=== PATIENT | female | born 1975 | race Caucasian/White ===

== ENCOUNTER 2022-02-04 13:42 | Emergency (ER) | payer BC, SELFPAY ==
[2022-02-04 13:46] VITALS: BP 161/100; PULSE 73; RESP 19; TEMP 36.7; O2SAT 98
--- NOTE | 2022-02-04 14:00 | RT.EKG_ITS ---
APPROVED REPORT Exam: Resting ECG Reason for Exam: fatigue Patient Location: E HR:67 bpm ECG Measurements Heart Rate 67 AXIS NE 171 P 47 QRSd 95 QRS 44 QT 398 T 27 QTc 420 Conclusion Sinus rhythm...normal P axis, V-rate 60- 99 Physician: sinus, no stemi, no st elevation or depression. inverted t wave in V1. no prior for compar jeffery
--- NOTE | 2022-02-04 14:08 | ED.GENADUL_ITS ---
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 Past medical history also includes a partial hysterectomy. She presents today for evaluation of fatigue. Patient states that for the last 4 days she has felt notably fatigued, sleeping 16+ hours every day. She has noticed some mild hair loss that has been occurring as well. She is uncertain if she has had any significant weight gain or weight loss. Over the last few weeks she has noticed some mild fatigue, but not as severe as over the last 4 days. She denies fever, chills, chest pain or shortness of breath. She denies any new numbness, tingling, or weakness. She does take her medication as directed, but occasionally secondary to pharmacy issues there will be periods where she is not able to receive her thyroid medications for a few days. The last occurrence of this was about 3 to 4 weeks ago. Patient has recently moved here from [place]. She has no other complaints at this time. No other modifying Physical exam is unremarkable, vital signs are stable. Patient shows no evidence of goiter, significant mass on her neck. Some chronic fibrotic nature on palpation of the neck, but no significant mass or other abnormality. Differential includes electrolyte abnormality, diminished thyroid effectiveness as that she potential causes. We will evaluate for these. Additionally ACS appears notably less likely but is of concern. Screening EKG shows no significant abnormalities aside for an inverted T waves in V1. No evidence of STEMI. We will also get lead and B vitamin assessment as well as the patient is now living at a new house here in [place]. Patient will be signed out to my colleague Dr. Jerrell Mccurdy. HPI General Date/Time Provider Initiated Documentation: 02/04/22 13:44 . 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 Past medical history also includes a partial hysterectomy. She presents today for evaluation of fatigue. Patient states that for the last 4 days she has felt notably fatigued, sleeping 16+ hours every day. She has noticed some mild hair loss that has been occurring as well. She is uncertain if she has had any significant weight gain or weight loss. Over the last few weeks she has noticed some mild fatigue, but not as severe as over the last 4 days. She denies fever, chills, chest pain or shortness of breath. She denies any new numbness, tingling, or weakness. She does take her medication as directed, but occasionally secondary to pharmacy issues there will be periods where she is not able to receive her thyroid medications for a few days. The last occurrence of this was about 3 to 4 weeks ago. Patient has recently moved here from [place]. She has no other complaints at this time. No other modifying Related Data Home Medications Medication Instructions Recorded Confirmed clonazepam 0.25 mg disintegrating 0.25 mg PO DAILY PRN 02/04/22 02/04/22 tablet fluoxetine 40 mg capsule 40 mg PO DAILY 02/04/22 02/04/22 multivitamin 1 cap PO DAILY 02/04/22 02/04/22 thyroid (pork) 90 mg tablet 90 mg PO DAILY 02/04/22 02/04/22 ([place] Thyroid) Allergies Allergy/AdvReac Type Severity Reaction Status Date / Time No Known Allergies Allergy Unverified 02/04/22 13:58 General Stated Complaint: GenMedical AUNG: 3 Review of Systems All systems reviewed & are unremarkable except as noted in HPI and below PFSH All Active Problems (Updated 02/04/22 @ 14:59 by Leandro Guidry DO) Fatigue (Acute) Social History Smoking/Tobacco Use Status: Never Smoking risk assessment performed?: Yes Alcohol Intake: current Alcohol Intake frequency: 0-2 drinks per day Drug use: Rarely Substance use type: marijuana Do you feel safe at home: Yes Do you feel safe in your relationship?: Yes Exam Narrative Exam Narrative: 1.Const: Well-nourished, Well-developed, appearing stated age 2.Eyes: PERRL, no conjunctival injection, and symmetrical lids. 3.ENT: Atraumatic external nose and ears. Moist MM. Neck: Symmetric, trachea midline, No thyromegaly. No palpable tenderness nodules or nodes on palpation of the patient's anterior neck 4.CVS: +S1/S2, No murmurs or gallops. Peripheral pulses 2+ and equal in all extremities. Brisk capillary refill in all extremities. 5.RESP: Unlabored respiratory effort. Clear to auscultation bilaterally. No wheezes rales or rhonchi 6.GI: Soft, Nontender/Nondistended, No hepatosplenomegaly. No guarding or rebound. 7.MSK: Normocephalic/Atraumatic, Extremities w/o deformity or ttp No cyanosis or clubbing, Normal movement of all extremities 8.Skin: Warm, Dry. No rashes or lesions. 9.Neuro: college admissions counselor II-XII grossly intact. Sensation grossly intact, no focal neurologic deficits. 10.Psych: (AAO) x3. Appropriate mood and affect Course Vital Signs Vital signs: Vital Signs Temperature 36.7 C 02/04/22 13:46 Pulse 73 02/04/22 13:46 Respiratory Rate 19 02/04/22 13:46 Blood Pressure 161/100 H 02/04/22 13:46 Pulse Oximetry 98 02/04/22 13:46 Temperature 36.7 C 02/04/22 13:46 Temperature Source Tympanic 02/04/22 13:46 Pulse 73 02/04/22 13:46 Respiratory Rate 19 02/04/22 13:46 Respiratory Effort 02/04/22 13:55 Blood Pressure 161/100 H 02/04/22 13:46 Blood Pressure Position Sitting 02/04/22 13:46 Pulse Oximetry 98 02/04/22 13:46 Oxygen Delivery Method Room Air 02/04/22 13:46 Oxygen Flow Rate 0 02/04/22 13:46 PAWSS Have you Been Recently Intoxicated or Drunk Within the Last 30 days?: No Have you Ever Experienced Previous Episodes of Alcohol Withdrawal?: No Have you ever Experienced Withdrawal Seizures?: No Have you ever Experienced Delirium Tremens(DT)s?: No Have you ever undergone Alcohol Rehabilitation Treatment (i.e, inpt ot outpatient treatment programs)?: No Have you ever Experienced Blackouts?: No Have you ever Combined Alcohol with other Downers within the last 90 days?: No Have you ever Combined Alcohol with any other Substance of Abuse during the last 90 days?: Yes Positive Blood Alcohol level on Presentation? [PCS.BAL]: No Evidence of Increased Autonomic Activity (i.e. HR>120, tremor, sweating, agitation, nausea)?: No Result: 2
[2022-02-04 14:36] VITALS: RESP 16
[2022-02-04 14:38] LABS: Abs Immature Grans 0.01 10^3/uL (0.0-0.06); Absolute Basophil Count 0.03 10^3/uL (0.0-0.2); Absolute Eosinophil Count 0.06 10^3/uL (0.0-0.7); Absolute Lymphocyte Count 1.21 10^3/uL (1.2-3.4); Absolute Monocyte Count 0.48 10^3/uL (0.1-0.8); Absolute Neutrophil Count 4.53 10^3/uL (1.2-6.7); Basophils % 0.5; Eosinophils % 0.9; HCT 38.7 % (36.0-46.0); HGB 12.7 g/dL (11.2-15.7); Immature Grans % 0.2; Lymphocytes % 19.1; MCH 32.1 pg (27.0-33.0); MCHC 32.8 % (32.0-36.0); MCV 97.7 fL (80-95); MPV 9.8 fL (8.0-11.0); Monocytes % 7.6; Neutrophils % 71.7; Platelet Count 209 10^3/uL (130-400); RBC 3.96 10^6/uL (3.93-5.22); RDW 12.2 % (11.7-14.6); RDW-SD 44.3 fL; WBC 6.32 10^3/uL (4.4-10.8)
[2022-02-04 14:50] LABS: Ammonia < 10 umol/L (11-32)
[2022-02-04 14:51] LABS: Bilirubin Negative (Negative); Blood Negative (Negative); Clarity Clear (Clear); Glucose Negative (Negative); Ketones Negative (Negative); Leukocyte Esterase Negative (Negative); Nitrite Negative (Negative); Urobilinogen 0.2 EU/dL (Up TO 0.2); pH 5.5 (5-8)
[2022-02-04 15:03] LABS: TSH (W/Ref FT4) 0.52 uIU/mL (0.36-3.74); Troponin I < 50 ng/L (<or=60)
[2022-02-04 15:07] LABS: ALT 42 U/L (14-59); AST 16 U/L (15-37); Alkaline Phosphatase 69 U/L (46-116); Anion Gap 6.4 mmol/L (3-11); BUN 11 mg/dL (7-18); Bilirubin, Total 0.5 mg/dL (0.2-1.0); CO2 25.6 mmol/L (21.0-32.0); CREATININE 0.6 mg/dL (0.55-1.02); Calcium 8.8 mg/dL (8.5-10.1); Chloride 105 mmol/L (98-107); Glucose 106 mg/dL (74-106); Potassium 3.7 mmol/L (3.5-5.1); Sodium 137 mmol/L (136-145); Total Protein 6.9 g/dL (6.4-8.2)
--- NOTE | 2022-02-04 15:15 | DI.CT_ITS ---
Exam(s) CT HEAD WO/W EXAM: CT HEAD WO/W CLINICAL HISTORY: confusion, fatigue, hx of cancer, r/o mass. TECHNIQUE: Imaging Protocol: Axial computed tomography images with coronal and sagittal reformatted images were created and reviewed Post contrast imaging was also obtained following intravenous infusion of 100 cc of Omnipaque 350. COMPARISON: No exams were available for comparison FINDINGS: The ventricular system is normal in appearance. No evidence of acute intracranial hemorrhage, mass effect, or midline shift. There is no evidence of an intracranial mass lesion or enhancing lesion. The orbital structures are unremarkable. The temporal bone structures appear intact. Calvarium: Normal. Visualized Paranasal sinuses/Mastoids: Clear. IMPRESSION: Normal cranial CT. No enhancing lesion seen. If there is a high clinical suspicion of intracranial metastatic disease, additional evaluation with MRI of the brain may be obtained due to its increased sensitivity in comparison to CT. RADIATION DOSE DELIVERED: 1,403.47mGy.cm Total DLP 1,403.47mGy.cm Total DLP !Error CTDIvol DATA REPOSITORY: All CT scans at this facility are submitted to the National Radiology Data Registry (NRDR) Dose Index Registry (DIR) with the [employer] (ACR). RADIATION OPTIMIZATION: All CT scans at this facility use at least one of these dose optimization te chniques: automated exposure control; mA and/or kV adjustment per patient size (includes targeted exa ms where dose is matched to clinical indication); or iterative reconstruction.
[2022-02-04 15:28] LABS: COVID-19 PCR Negative (Negative); Influenza A PCR Negative (Negative); Influenza B PCR Negative (Negative); RSV PCR Negative (Negative)
[2022-02-04 15:39] LABS: Source Nasopharynx
--- NOTE | 2022-02-04 15:54 | CMACTNOTE_ITS ---
- If Service Date Differs Date of service: 02/04/22 Time of Service: 15:54 Care Management Activity Note Akosua is seen in the ED for fatigue. At the request of ED provider, CM contacts [facility] to obtain a follow up appointment for Akosua. An urgent ED follow-up appointment is scheduled with Dr. Vee for Thursday, February 10, 2022, at 10:00 am.
[2022-02-04 16:04] LABS: Salicylate < 2.8 mg/dL (<2.8)
[2022-02-04 16:14] LABS: Acetaminophen < 2 ug/mL (10-30)
[2022-02-04] MEDS: Omnipaque 350 MG/ML 100 ML BTL IJ (16:59)
[2022-02-04] MEDS: Normal Saline Flush 10 ML SYR IVP (17:00)
--- NOTE | 2022-02-04 17:14 | DI.VRAD_ITS ---
PROCEDURE INFORMATION: Exam: CT Head With Contrast Exam date and time: 02/04/2022 4:49 PM Age: 47 years old Clinical indication: Confusion, fatigue, HX of cancer TECHNIQUE: Imaging protocol: Computed tomography of the head with intravenous contrast. COMPARISON: No relevant prior studies available. FINDINGS: Brain: No intracranial hemorrhage or extra-axial fluid collection. No evidence of mass effect or midline shift. Sandoval-white matter differentiation is intact. No abnormal intracranial enhancement. Cerebral ventricles: Unremarkable. No ventriculomegaly. Bones/joints: No acute osseus lesion or fracture. Paranasal sinuses: Visualized sinuses are unremarkable. No fluid levels. Mastoid air cells: Unremarkable. Soft tissues: Unremarkable. IMPRESSION: No acute intracranial pathology. If continued clinical suspicion for possible intracranial metastatic disease given provided history of cancer, recommend further evaluation with MRI brain with and without contrast. Dictated and Authenticated by: Yaya Shen MD. Ordering:SAFIA Reeves MD
--- NOTE | 2022-02-04 17:15 | NUR.NOTE ---
pts resting comfortably in room, no complaints at this time. JM
--- NOTE | 2022-02-04 17:31 | W.EDPROG ---
Date of service: 02/04/22 Time of Service: 17:31 Medical Decision Making Resting comfortably no acute distress, alert oriented, she does have some increased energy since arrival, nonmeningeal, afebrile nontoxic, however does appear fatigued, moving all extremities without focal deficits, full range of motion of neck, denies headache. Consider viral syndrome such as Sharan-Ocasio/mono versus tickborne illness, no evidence of electrolyte abnormality or dysfunction TSH, CT head unremarkable. Patient has urgent follow-up with next week with primary care given home care instructions and strict return precautions Discharge Plan Disposition Patient Disposition: HOME Condition: Stable Discharge Details Clinical Impression: Fatigue Primary Care Provider: Nel,Local ED Provider: Luis Georges Home Meds and New Rx's Prescriptions: Continued fluoxetine 40 mg Capsule 40 mg PO DAILY 0RF multivitamin Capsule 1 cap PO DAILY 0RF clonazepam 0.25 mg Tablet,Disintegrating 0.25 mg PO DAILY PRN0RF thyroid (pork) [[place] Thyroid] 90 mg Tablet 90 mg PO DAILY 0RF Discharge Instructions Instructions: Fatigue (ED) Additional Instructions: At this time your thyroid function is within normal limits, your hemoglobin levels are normal. Your electrolytes are normal. We will help to establish a new primary care provider for you. You will be contacted when one has been set up. If you notice any worsening of your symptoms, or any new symptoms such as vomiting, diarrhea, fever, chills, shortness of breath, chest pain, numbness, weakness, headache, or fainting , please return immediately to the emergency department for reevaluation. Please follow up with your primary care provider as soon as possible for reassessment and reevaluation. As always, it was a pleasure participating in your medical care today.
[2022-02-04 17:50] VITALS: BP 138/72; PULSE 82; RESP 16; O2SAT 98
[2022-02-04 22:59] LABS: Vitamin B12 367 pg/mL (211-911)
[2022-02-06 11:30] LABS: Lyme Ab w Rflx to Lyme Confirm Negative (Negative)
[2022-02-06 22:21] LABS: Anaplasma phagocytophilum Negative (Negative); B. miyamotoi PCR Negative (Negative); Babesia divergens/MO-1 Negative (Negative); Babesia duncani Negative (Negative); Babesia microti Negative (Negative); Ehrlichia chaffeensis Negative (Negative); Ehrlichia ewingii/canis Negative (Negative); Ehrlichia muris eauclairensis Negative (Negative)
[2022-02-07 15:01] LABS: Riboflavin (Vitamin B2), P 5 mcg/L (1-19)
[2022-02-07 17:36] LABS: Thiamine (Vitamin B1), WB 137 nmol/L (70-180)
[2022-02-10 16:07] LABS: Biotin (Vitamin B7), Serum >3600.0 pg/mL
[2022-02-16 09:31] LABS: Niacin (Vitamin B3), Plasma See Comments ug/mL
== END 2022-02-04 17:55 | disposition home or self-care (01) ==
PROVIDERS: Student in an Organized Health Care Education/Training Program; Emergency Provider Emergency Medicine
DX: R53.83 Other fatigue (principal); E03.2 Hypothyroidism due to medicaments and other exogenous substances; T45.1X5A Adverse effect of antineoplastic and immunosuppressive drugs, initial encounter; L65.9 Nonscarring hair loss, unspecified
CPT/HCPCS: 36415; 80053; 84252; 84591; 86308; 87637; 87798; 93005; 99284; 99285; 70470; 80329; 81003; 82140; 82607; 83655; 84425; 84443; 84484; 85025; 86618; 93010; J3490

== ENCOUNTER 2025-06-01 01:18 | Outpatient (CLI) | payer MEDICARE, OTHER, SELFPAY ==
--- NOTE | 2025-06-01 | DI.MAMMO_ITS ---
Exam(s) MAMMO SCREENING EXAM: MAMMO SCREENING CLINICAL HISTORY: SCREENING, Z12.31. TECHNIQUE: Bilateral full field digital CC and MLO mammographic images were obtained with 3D tomosynthesis and utilizing computer aided detection (CAD). COMPARISON: Prior outside mammograms are apparently not able be obtained. FINDINGS: Asymmetric tissue inferiorly in the left breast has benign appearance There are no malignant-appearing microcalcification groups is region or elsewhere in either breast. There are no new spiculated masses nor malignant appearing microcalcification groups. There is no significant architectural distortion nor skin thickening-retraction. IMPRESSION: No radiographic evidence of malignancy. BI-RADS Category 2 - Benign Findings Density: Breast density Category C or D implies that the patient has dense breast tissue. Dense breast tissue can make it harder to find cancer on a mammogram. Dense breast tissue is also associated with an increased risk of breast cancer. This information about the result of the mammogram report was provided to the patient to raise their awareness. Use this report when you speak with the patient about their risks for breast cancer, which includes their family history. At that time, you may recommend additional screening tests (Ultrasound or MRI) as these tests may add significant information. A negative radiographic report should not delay biopsy if a dominant or clinically suspicious mass is present. Up to ten percent of cancers are not identified on mammography. A negative report may reinforce clinical impression. Adenosis and dense breasts may obscure an underlying neoplasm. False positive reports average 6 to 10%. Patient will receive a letter notifying them of these results.
== END 2025-06-01 01:38 ==
LOC: DI 01:18
PROVIDERS: Visit Provider Student in an Organized Health Care Education/Training Program
DX: R01.1 Cardiac murmur, unspecified (principal)
CPT/HCPCS: 77063; 77067